=== PATIENT | male | born 1990 | race African-American/Black ===

== ENCOUNTER 2023-04-23 13:01 | Emergency (ER) | payer OTHER ==
[2023-04-23 13:22] VITALS: BP 135/64; O2SAT 100
--- NOTE | 2023-04-23 13:45 | XRAY Report ---
PROCEDURE: Shoulder 3 View RT INDICATIONS: pain TECHNIQUE: 3 views of the shoulder were acquired. COMPARISON: None. FINDINGS: Bones: No fractures or dislocations. No suspicious bony lesions. Visualized ribs appear intact. Soft tissues: No suspicious soft tissue calcifications. The visualized lungs are within normal limi ts. IMPRESSION: No acute bony abnormality. Reviewed by: Blue Harrison MD on 04/23/2023 1:44 PM PST Approved by: Blue Harrison MD on 04/23/2023 1:44 PM PST Station ID: [id number]
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
== END 2023-04-23 15:19 | disposition home or self-care (01) ==
LOC: ED 13:01
DX: M25.511 Pain in right shoulder (principal)
CPT/HCPCS: 99283